=== PATIENT | female | born 1980 | race American Indian/Alaskan Native ===

== ENCOUNTER 2018-09-05 12:49 | Emergency (ER) | payer SELFPAY ==
[2018-09-05 13:02] VITALS: BP 164/101
[2018-09-05] MEDS ORDERED: XYLOCAINE 1% MPF 5 mL INFILTRATI ONE (14:07)
--- NOTE | 2018-09-05 14:27 | Emergency Department Report ---
HPI - General Chief Complaint: Laceration/Recheck/Suture Time Seen by Provider: 09/05/18 14:04 - HPI HPI: 38 year-old female presents to the emergency department with a laceration to the right palm that occurred last night around 10 PM. She thinks that she cut it on a new pot while cooking but she is not 100% sure. She denies any foreign body sensation. She is right-hand dominant. She says that she is up-to-date with her tetanus vaccination. She does not have a primary care physician. ED Past Medical Hx - Past Medical History Previous Medical History?: No - Surgical History Past Surgical History?: No - Social History Smoking Status: Current Every Day Smoker Substance Use Type: None - Medications Home Medications: Home Medications Medication Instructions Recorded Confirmed Last Taken Type Sulfamethoxazole/Trimethoprim 1 each PO BID #10 tablet 09/05/18 Unknown Rx [Bactrim DS TAB] ED Review of Systems ROS: Stated complaint: RT HAND NEED STITCHS Other details as noted in HPI Comment: All other systems reviewed and negative Constitutional: denies: chills, fever Eyes: denies: eye pain, eye discharge, vision change ENT: denies: ear pain, throat pain Respiratory: denies: cough, shortness of breath, wheezing Cardiovascular: denies: chest pain, palpitations Gastrointestinal: denies: abdominal pain, nausea, diarrhea Genitourinary: denies: urgency, dysuria, discharge Musculoskeletal: arthralgia. denies: back pain Skin: other (laceration). denies: lesions Neurological: denies: headache, weakness Physical Exam - Physical Exam Vital Signs: Vital Signs 09/05/18 12:59 Temperature 98.9 F Pulse Rate 92 H Respiratory 18 Rate Blood Pressure 164/101 O2 Sat by Pulse 99 Oximetry Physical Exam: GENERAL: The patient is well-developed well-nourished. HEENT: Normocephalic. Atraumatic. Patient has moist mucous membranes. EYES: Extraocular motions are intact. NECK: Supple. Trachea is midline. CHEST/LUNGS: Clear to auscultation. There is no respiratory distress noted. HEART/CARDIOVASCULAR: Regular. There is no tachycardia. There is no obvious murmur. ABDOMEN: There is no abdominal distention. SKIN: Skin is warm and dry. There is a 1.5 cm linear laceration to the right palm just below the second and third fingers. No current bleeding, no surrounding erythema and no purulent discharge. No foreign body seen. NEURO: The patient is awake, alert, and oriented. The patient is cooperative. The patient has no focal neurologic deficits. The patient has normal speech. MUSCULOSKELETAL: Mild tenderness to palpation with the patient has a right palmar laceration. Radial pulse +2 over 4 and capillary refill less than 2 seconds to the affected right hand. ED Course Vital Signs 09/05/18 12:59 Temperature 98.9 F Pulse Rate 92 H Respiratory 18 Rate Blood Pressure 164/101 O2 Sat by Pulse 99 Oximetry - Laceration /Wound Repair Right Hand Wound Location: upper extremity (right Palm) Wound Length (cm): 2 Wound's Depth, Shape: superficial, linear Wound Explored: clean Anesthesia: 1% Lidocaine Volume Anesthetic (ccs): 2 Wound Repaired With: sutures Suture Size/Type: 5:0, proline Number of Sutures: 2 Layer Closure?: No Sterile Dressing Applied?: Yes ED Medical Decision Making - Medical Decision Making Patient presents with a small right palmar laceration that occurred somehow last night around 10 PM. Even though the patient came in earlier this afternoon and it has been about 12 or 14 hours since the laceration occurred, the laceration appears clean, linear with sharp edges. There is no foreign body. The skin appears vascularized and not too desiccated. Therefore I decided to place to simple interrupted sutures to give some approximation. Also given the location on the patient's Palm, there will be a lot of tension and it will not likely stay closed or heal appropriately with skin glue or Steri-Strips. Patient says that she is up-to-date with vaccinations including tetanus. She has been placed on a few days of antibiotics. She will return to the ER with any worsening of her symptoms, signs of infection, or with any acute distress. Critical Care Time: No Critical care attestation.: If time is entered above; I have spent that time in minutes in the direct care of this critically ill patient, excluding procedure time. ED Disposition Clinical Impression: Laceration of right hand Qualifiers: Encounter type: initial encounter Foreign body presence: without foreign body Qualified Code(s): S61.411A - Laceration without foreign body of right hand, initial encounter Disposition: TO HOME OR SELFCARE Is pt being admited?: No Condition: Stable Instructions: Suture Care (ED), Laceration (ED) Additional Instructions: Please follow up with a primary care physician. The sutures will need to be removed in 7 days and can be done so at a primary care office, urgent care, or back in the emergency department. Return to the emergency department or make sure you are seen sooner with any signs or symptoms of infection such as surrounding redness or discharge of pus. Prescriptions: Sulfamethoxazole/Trimethoprim [Bactrim DS TAB] 1 each PO BID #10 tablet Referrals: PRIMARY CARE, [Primary Care Provider] - 3-5 Days
== END 2018-09-05 14:34 | disposition home or self-care (01) ==
LOC: ED 12:49
DX: S61.411A Laceration without foreign body of right hand, initial encounter (principal); F17.200 Nicotine dependence, unspecified, uncomplicated; W45.8XXA Other foreign body or object entering through skin, initial encounter; Y93.89 Activity, other specified; Y99.8 Other external cause status; Y92.89 Other specified places as the place of occurrence of the external cause
CPT/HCPCS: 99282